=== PATIENT | male | born 1980 | race Caucasian/White ===

== ENCOUNTER 2021-01-03 05:49 | Observation (INO) ==
[2021-01-03] MEDS ORDERED: NORMAL SALINE 1,000 ML IV ONE (06:04)
[2021-01-03 06:27] LABS: Hematocrit 47.4 % (42.0-52.0); Hemoglobin 14.9 gm/dL (13.5-18.0); Mean Cell Volume 90.8 fl (78-100); Mean Corpuscular Hemoglobin 28.5 pg (27-31); Mean Corpuscular Hgb Conc 31.4 g/dl (32-36); Mean Platelet Volume 8.4 fl (8-11.3); Neutrophil # 5.8 K/mm3 (1.3-6.0); Neutrophil % 62.9 % (42-75.0); Platelet Count 343 K/mm3 (150-450); Red Blood Count 5.22 M/mm3 (4.7-6.0); Red Cell Distribution Width 14.3 % (11.5-14.0); White Blood Count 9.2 K/mm3 (4.0-10.5)
[2021-01-03 06:28] LABS: Urine Bilirubin 1 mg/dl (NEGATIVE); Urine Ketone Negative (NEGATIVE); Urine Nitrite Negative (NEGATIVE); Urine Protein Negative (NEGATIVE); Urine Specific Gravity 1.025 SP.GR. (1.005-1.030); Urine Urobilinogen 4 EU/dl (NORMAL)
[2021-01-03 06:35] LABS: Urine Appearance Slightly Cloudy (CLEAR); Urine Bacteria 3+; Urine Blood 5 /ul (NEGATIVE); Urine Color Yellow; Urine Mucus Few - 1+; Urine RBC 0-5 /hpf (0-5); Urine WBC 0-5 /hpf (0-5)
[2021-01-03 06:39] LABS: ALT 29 U/L (19-67); AST 22 U/L (0-48); Albumin * 3.1 gm/dl (3.4-5.0); Alkaline Phosphatase * 173 U/L (50-170); Anion Gap 13.4 mmol/L (6.8-13.8); BUN/Creatinine Ratio 12.6 (9.0-21.6); Bilirubin, Total 0.5 mg/dL (0.0-1.1); Blood Urea Nitrogen 11 mg/dL (6-23); Ca. Corrected For Albumin 9.5 mg/dL (8.4-10.2); Calcium * 9.1 mg/dL (7.9-10.9); Carbon Dioxide 29.4 mmol/L (24-32.6); Chloride 99 mmol/L (97-106); Glucose * 109 mg/dL (70-110); Potassium 3.8 mmol/L (3.4-4.6); Salicylate Less than 2.8 mg/dL (2.8-20.0); Sodium 138 mmol/L (132-142); Total Protein 7.5 gm/dL (6.2-8.2)
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
[2021-01-03 06:58] LABS: Cocaine Ur Negative (NEGATIVE); Urine Barbiturate Negative (NEGATIVE); Urine Benzodiazepines Negative (NEGATIVE); Urine Opiates Negative (NEGATIVE); Urine PCP Negative (NEGATIVE)
[2021-01-03 06:59] LABS: Urine THC Positive (NEGATIVE)
[2021-01-03] MEDS ORDERED: hydrALAZINE HCL 20 MG/ML VIAL IV PRN (09:54)
[2021-01-03] MEDS: ACETAMINOPHEN 325 MG TABLET PO SCH ×3 (13:27→21:01)
[2021-01-03] MEDS: METOPROLOL TARTRATE 25 MG TABLET PO SCH ×3 (13:27→21:01)
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
[2021-01-03] MEDS ORDERED: NICOTINE POLACRILEX GUM BC SCH (19:45)
[2021-01-03] MEDS ORDERED: NICOTINE 21 MG PATC TD SCH (20:00)
[2021-01-03] MEDS: CLINDAMYCIN HCL 150 MG CAPSULE PO SCH (21:00)
[2021-01-03] MEDS: APIXABAN 2.5 MG TABLET PO SCH (21:01)
[2021-01-03] MEDS: oxyCODONE HCL 5 MG TABLET PO PRN (22:48)
[2021-01-04] MEDS ORDERED: diphenhydrAMINE HCL 25 MG CAPSULE PO ONE (00:45)
[2021-01-04] MEDS: oxyCODONE HCL 5 MG TABLET PO PRN ×2 (05:29→12:12)
[2021-01-04] MEDS: ACETAMINOPHEN 325 MG TABLET PO SCH (08:24)
[2021-01-04] MEDS: METOPROLOL TARTRATE 25 MG TABLET PO SCH (08:24)
[2021-01-04] MEDS: APIXABAN 2.5 MG TABLET PO SCH (08:24)
[2021-01-04] MEDS: CLINDAMYCIN HCL 150 MG CAPSULE PO SCH (08:28)
[2021-01-04] MEDS ORDERED: HYDROCHLOROTHIAZIDE 25 MG TABLET PO SCH (09:00)
[2021-01-04] MEDS ORDERED: SENNOSIDES 8.6 MG TABLET PO SCH (09:00)
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
[2021-01-04 13:39] VITALS: BP 144/88
== END 2021-01-04 12:10 | disposition home health service (06) ==
LOC: MS 05:49 → ER 05:49 → MS 09:27
PROVIDERS: ADMIT Family Medicine; ATTEND Family Medicine